=== PATIENT | female | born 1985 | race Caucasian/White ===

== ENCOUNTER 2018-01-21 12:43 | Emergency (ER) | payer OTHER ==
[~2018-01-21] VITALS: Ht 157.5 cm; Wt 104.3 kg
[2018-01-21 12:58] VITALS: BP 131/68
--- NOTE | 2018-01-21 13:05 | NUR ---
PT. CAME INTO THE ED DUE TO VAGINAL BLEEDING SINCE AUGUST 2017. PT. STATES " I SAW MY PRIMARY DOCTOR I HAVE THE CONTROL IMPLANT AND SHE ALSO PUT ME ON THE PILL TO SEE IF I STOPPED BLEEDING, BUT I HAVE NOT AND IT COMES AND GOES AND IT GETS WORSE". PT HAS 6/10 LOWER BACK PAIN THAT RADIATES TO LOWER ABD AND A CRAMPING SENSATION. DENIES N/V/D. DENIES LOSS OF APPETITE. DENIES DIZZYNESS. ER MD NOTIFIED. SAFETY PRECAUTIONS IMPLEMENTED. WILL CONTINUE TO MONITOR.
--- NOTE | 2018-01-21 13:13 | NUR ---
PT AMBULATED TO BED 1
--- NOTE | 2018-01-21 14:00 | NUR ---
PT. IN BED , RR EVEN AND UNLABORED. VSS. FAMILY MEMBER AT BEDSIDE. WILL CONTINUE TO MONITOR.
[2018-01-21 14:35] LABS: BASOPHILS % (AUTO) 0.5 % (0.0-2.0); EOSINOPHILS # (AUTO) 0.1 K/uL (0-0.4); HEMATOCRIT 31.9 % (36-48); HEMOGLOBIN 10.3 g/dL (12.0-16.0); LYMPHOCYTES # (AUTO) 2.6 K/uL (2.5-16.5); MEAN CORPUSCULAR HEMOGLOBIN 24 pg (27-31); MEAN CORPUSCULAR HGB CONC 32 g/dL (33-37); MEAN CORPUSCULAR VOLUME 75.5 fL (80-94); MONOCYTES # (AUTO) 0.8 K/uL (0.8-1.0); MONOCYTES % (AUTO) 8.3 % (1.7-9.3); NEUTROPHILS # (AUTO) 5.7 K/uL (1.8-7.7); NEUTROPHILS % (AUTO) 62.2 % (42.2-75.2); PLATELET COUNT (AUTO) 250 K/uL (140-450); RED BLOOD CELL COUNT(AUTO) 4.23 MIL/uL (4.20-5.40); WHITE BLOOD COUNT (AUTO) 9.2 K/uL (4.8-10.8)
--- NOTE | 2018-01-21 14:48 | NUR ---
ULTRASOUND AT BEDSIDE AT THIS TIME. WILL CONTINUE TO MONITOR. VSS.
[2018-01-21 15:54] VITALS: BP 126/65
--- NOTE | 2018-01-21 15:55 | NUR ---
Patient discharged with v/s stable. Written and verbal after care instructions given and explained. Patient alert, oriented and verbalized understanding of instructions. Ambulatory with steady gait. All questions addressed prior to discharge. ID band removed. Patient advised to follow up with PMD. Rx of PROVERA given. Patient educated on indication of medication including possible reaction and side effects. Opportunity to ask questions provided and answered.
== END 2018-01-21 15:55 | disposition home or self-care (01) ==
LOC: MED 12:43
DX: N93.9 Abnormal uterine and vaginal bleeding, unspecified (principal); K21.9 Gastro-esophageal reflux disease without esophagitis
CPT/HCPCS: 36415; 76830; 81025; 85025; 93976; 99285; Q0092